=== PATIENT | female | born 1980 | race Caucasian/White ===

== ENCOUNTER 2016-07-31 20:27 | Emergency (ER) | payer SELFPAY ==
[~2016-07-31] VITALS: Ht 160 cm; Wt 118.4 kg
[2016-07-31] MEDS ORDERED: KETOROLAC 30 MG/1 ML ONE (22:59)
[2016-07-31] MEDS ORDERED: HYDROcodone/APAP 5/325 TABLET ONE (22:59)
[2016-07-31] MEDS ORDERED: KETOROLAC 30 MG/1 ML IM ONE (23:00)
[2016-07-31] MEDS ORDERED: HYDROcodone/APAP 5/325 TABLET PO ONE (23:00)
[2016-07-31 23:53] LABS: HCG UR OBC PASS
[2016-08-01 01:00] VITALS: BP 120/85
== END 2016-08-01 00:57 | disposition home or self-care (01) ==
LOC: ED 23:31
DX: N30.01 Acute cystitis with hematuria (principal)
CPT/HCPCS: 74176; 81001; 81025; 87077; 87086; 87186; 96372; 99285; J1885

== ENCOUNTER 2019-03-08 20:16 | Emergency (ER) | payer OTHER ==
[~2019-03-08] VITALS: Ht 160 cm; Wt 120.9 kg
[2019-03-08 20:19] VITALS: BP 142/83
--- NOTE | 2019-03-08 20:41 | NUR ---
PT C/O PAINFUL URINATION AND BILAT FLANK PAIN BEGINNING YESTERDAY AM. TODAY AM PT NOTICED SOME BLOOD IN URINE. AT BEDSIDE. AWAITING FURTHER ORDERS AT THIS TIME.
[2019-03-08 20:56] LABS: MICROSCOPIC AUTO
[2019-03-08 20:57] LABS: CULTURE INDICATED? YES
[2019-03-08] MEDS ORDERED: KETOROLAC 30 MG/1 ML IM ONE (21:00)
[2019-03-08] MEDS ORDERED: PHENAZOPYRIDINE 200 MG TABLET ONE (21:04)
[2019-03-08] MEDS ORDERED: KETOROLAC 30 MG/1 ML ONE (21:05)
[2019-03-08 21:06] LABS: BASOPHILS # (AUTO) 0.05 x10^3/uL (0-0.1); BASOPHILS % (AUTO) 1 % (0-1); EOSINOPHILS # (AUTO) 0.18 x10^3/uL (0-0.4); EOSINOPHILS % (AUTO) 2 % (1-7); LYMPHOCYTES # (AUTO) 3.34 x10^3/uL (1-3.4); LYMPHOCYTES % (AUTO) 30 % (22-44); MD NO; MEAN CORPUSCULAR HEMOGLOBIN 29.1 pg (27.0-34.8); MEAN CORPUSCULAR HGB CONC 32.4 g/dL (32.4-35.8); MEAN CORPUSCULAR VOLUME 89.7 fL (80-100); MEAN PLATELET VOLUME 8.7 fL (7.4-10.4); MONOCYTES # (AUTO) 0.56 x10^3/uL (0.2-0.8); MONOCYTES % (AUTO) 5 % (2-9); NEUTROPHILS # (AUTO) 7.13 x10^3/uL (1.8-6.8); NEUTROPHILS % (AUTO) 63 % (42-75); PLATELET COUNT 236 x10^3/uL (130-400); RED BLOOD COUNT 4.81 x10^6/uL (3.82-5.3); RED CELL DISTRIBUTION WIDTH 13.6 % (9.6-15.2)
[2019-03-08 21:09] LABS: HCG UR SG 1.024 (1.003-1.030)
--- NOTE | 2019-03-08 21:10 | NUR ---
MEDS ADMIN PER MAY. PT RESTING ON [facility]. FAMILY AT BEDSIDE.
[2019-03-08 21:17] LABS: ALBUMIN 3.3 g/dL (3.4-5.0); ANION GAP 4 mmol/L (5-15); CALCIUM 8.7 mg/dL (8.5-10.1); CHLORIDE 112 mmol/L (98-107)
[2019-03-08 21:21] LABS: ALANINE AMINOTRANSFERASE 21 U/L (12-78); ALKALINE PHOSPHATASE 85 U/L (45-117); BILIRUBIN,TOTAL 0.3 mg/dL (0.2-1.0); CREATININE 0.74 mg/dL (0.55-1.02); TOTAL PROTEIN 7.1 g/dL (6.4-8.2)
[2019-03-08] MEDS ORDERED: CEFTRIAXONE 1,000 MG ONE (21:24)
[2019-03-08] MEDS ORDERED: LIDOCAINE-MPF 1%, 2ML ONE (21:25)
[2019-03-08] MEDS ORDERED: CEFTRIAXONE 1,000 MG IM ONE (21:30)
--- NOTE | 2019-03-08 21:42 | NUR ---
MEDS ADMIN PER MAY.
[2019-03-08] MEDS ORDERED: PHENAZOPYRIDINE 200 MG TABLET PO ONE (22:00)
== END 2019-03-08 21:52 | disposition home or self-care (01) ==
LOC: ED 21:30
DX: N10 Acute pyelonephritis (principal)
CPT/HCPCS: 36415; 80053; 81001; 81025; 83690; 85025; 87086; 96372; 99283; J0696; J1885

== ENCOUNTER 2019-05-03 17:35 | Emergency (ER) | payer OTHER ==
[~2019-05-03] VITALS: Ht 160 cm; Wt 116.0 kg
[2019-05-03 17:38] VITALS: BP 120/63
[2019-05-03] MEDS ORDERED: HYDROcodone/APAP 5/325 TABLET ONE (17:57)
[2019-05-03] MEDS ORDERED: CYCLOBENZAPRINE 10 MG TABLET ONE (17:57)
[2019-05-03] MEDS ORDERED: KETOROLAC 30 MG/1 ML ONE (17:57)
[2019-05-03] MEDS ORDERED: ONDANSETRON ODT 4 MG ONE (17:58)
[2019-05-03] MEDS ORDERED: KETOROLAC 30 MG/1 ML IM ONE (18:00)
[2019-05-03] MEDS ORDERED: HYDROcodone/APAP 5/325 TABLET PO ONE (18:00)
[2019-05-03] MEDS ORDERED: ONDANSETRON ODT 8 MG PO ONE (18:00)
[2019-05-03] MEDS ORDERED: CYCLOBENZAPRINE 10 MG TABLET PO ONE (18:00)
--- NOTE | 2019-05-03 18:20 | NUR ---
MEDICATED PER EMAR AT BEDSIDE- TO DRIVE PATIENT HOME IF DISCHARGED
--- NOTE | 2019-05-03 18:40 | NUR ---
DISCHARGED HOME DESPITE RECENT ADMIN OF NARCOTIC(S) PATIENT IN THE CARE OF WHO WILL BE KEEPING A CLOSE EYE ON HER
== END 2019-05-03 18:44 | disposition home or self-care (01) ==
LOC: ED 18:08
DX: M54.42 Lumbago with sciatica, left side (principal); Z90.89 Acquired absence of other organs; E66.9 Obesity, unspecified; Z68.42 Body mass index [BMI] 45.0-49.9, adult
CPT/HCPCS: 72110; 96372; 99283; J1885; Q0162